=== PATIENT | male | born 1990 | race Caucasian/White ===

== ENCOUNTER 2022-03-15 12:49 | Emergency (ER) | payer MEDICAID ==
[~2022-03-15] VITALS: Ht 172.7 cm; Wt 68.0 kg
[2022-03-15 12:55] VITALS: BP 109/81
[2022-03-15 13:21] LABS: HEMATOCRIT. 45.2 % (42.0-52.0); HEMOGLOBIN. 15.3 g/dL (14.0-18.0); LYMPHOCYTES % 21.2 % (20.0-50.0); MEAN CORPUSCULAR HEMOGLOBIN 30.5 pg (28.0-32.0); MEAN CORPUSCULAR VOLUME 89.9 fL (80.0-94.0); MONOCYTES % 6.1 % (2.0-8.0); NEUTROPHILS % 68.7 % (40.0-76.0); PLATELET 246 x1000/uL (130-400); RED BLOOD CELL COUNT 5.03 mill/uL (4.7-6.1); RED CELL DISTRIBUTION WIDTH 12.8 % (11.6-14.6)
[2022-03-15 13:35] LABS: CHLORIDE 104 mEq/L (98-107)
== END 2022-03-15 15:08 | disposition home or self-care (01) ==
LOC: ER 13:18
DX: R55 Syncope and collapse (principal); F25.9 Schizoaffective disorder, unspecified; F17.210 Nicotine dependence, cigarettes, uncomplicated
CPT/HCPCS: 36415; 71045; 80053; 83880; 84484; 85025; 93005; 99285